=== PATIENT | male | born 1955 | race Caucasian/White ===

== ENCOUNTER 2018-08-12 10:10 | Day surgery (SDC) | payer OTHER ==
[~2018-08-12 10:10] MED LIST: EPINEPHrine 1 MG/ML 30 ML MDV ONE; Lactated Ringers 1,000 ML IV SCH; Lidocaine 1%/Sod Bicarbonate in NS 8.4% 1 ML Syringe IDERM PRN; Sodium Chloride 0.9% 10 ML Syringe FLUSH PRN
[2018-08-12] MEDS ORDERED: EPINEPHrine 1 MG/ML SDV ONE (11:29)
[2018-08-12] MEDS ORDERED: Ropivacaine 0.5% 5 MG/ML 30 ML SDV ONE (11:29)
[2018-08-12] MEDS ORDERED: Lidocaine 1% 4 ML ONE (11:29)
[2018-08-12] MEDS ORDERED: Dexamethasone 4 MG/ML SDV ONE (12:27)
[2018-08-12] MEDS ORDERED: Lactated Ringers 1,000 ML ONE (12:27)
[2018-08-12] MEDS ORDERED: ceFAZolin 1 GM Vial ONE (12:27)
[2018-08-12] MEDS ORDERED: Ondansetron 4 MG/2 ML SDV ONE (12:27)
[2018-08-12] MEDS ORDERED: Rocuronium 50 MG/5 ML Vial ONE (12:27)
[2018-08-12] MEDS ORDERED: Lidocaine 1% 6 ML ONE (12:27)
[2018-08-12] MEDS ORDERED: Ketorolac 30 MG/ML SDV ONE (12:27)
[2018-08-12] MEDS ORDERED: Propofol 200 MG/20 ML SDV ONE (12:28)
[2018-08-12] MEDS ORDERED: Midazolam 1 MG/ML 2 ML SDV ONE (12:28)
[2018-08-12] MEDS ORDERED: fentaNYL 250 MCG/5 ML SDV ONE (12:29)
[2018-08-12] MEDS ORDERED: Metoprolol Tartrate 25 MG Tab PO SCH (12:35)
--- NOTE | 2018-08-12 12:47 | PCM.PREANE ---
Preanesthetic Assessment - Anesthesia/Transfusion/Family Hx Anesthesia History: Prior Anesthesia Without Reaction Family History of Anesthesia Reaction: No Transfusion History: No Prior Transfusion(s) - Review of Systems General: No Symptoms Pulmonary: No Symptoms Cardiovascular: Dyspnea on Exertion Gastrointestinal: Abdominal Pain (hunger) Neurological: Tingling (right shoulder with movement) Other: Reports: Easy Bleeding, Liver Problems (enzimes a little high), Depression (Hx) - Physical Assessment NPO Status Date: 08/11/18 NPO Status Time: 18:00 Pulse: 63 O2 Sat by Pulse Oximetry: 95 Respiratory Rate: 16 Blood Pressure: 118/85 Temperature: 36.8 C Vital Signs: Last Vital Signs Temp 36.8 C 08/12/18 11:20 Pulse 63 08/12/18 12:40 Resp 16 08/12/18 11:20 BP 118/85 08/12/18 12:40 Pulse Ox 95 08/12/18 11:20 Height: 1.85 m Weight: 78.018 kg ASA Class: 3 Mental Status: Alert & Oriented x3 Dentition: Reports: Normal Dentition, [place](s) Thyro-Mental Finger Breadths: 3 Mouth Opening Finger Breadths: 3 ROM/Head Extension: Limited/Partial (stiffness wth "some pain") Lungs: Clear to Auscultation, Normal Respiratory Effort Cardiovascular: Regular Rate, Regular Rhythm - Lab Values: Laboratory Last Values MRSA (PCR) Negative 07/27/18 14:05 - Imaging/EKG Impressions: on chart SB with min. ST elevation - Allergies Allergies/Adverse Reactions: Allergies Allergy/AdvReac Type Severity Reaction Status Date / Time No Known Allergies Allergy Verified 08/11/18 15:33 - Blood Blood Available: No - Anesthesia Plan Pre-Op Medication Ordered: Beta Medina Beta Medina: Metoprolol Med Last Dose Date: 08/12/18 Med Last Dose Time: 12:40 - Acknowledgements Anesthesia Type Planned: General Anesthesia, Regional Block (right interscalene block for post-op pain control) Pt an Appropriate Candidate for the Planned Anesthesia: Yes Alternatives and Risks of Anesthesia Discussed w Pt/Guardian: Yes Pt/Guardian Understands and Agrees with Anesthesia Plan: Yes PreAnesthesia Questionnaire HEENT History: Reports: Epistaxis, Sinusitis Cardiovascular History: Reports: CAD, High Cholesterol, Hypertension, [place], Stents Respiratory History: Reports: Other (See Below) Other Respiratory History: bronchitis, cough Gastrointestinal History: Reports: GERD Genitourinary History: Reports: None ISOTOPE TECHNOLOGIST History: Reports: None Musculoskeletal History: Reports: Other (See Below) Other Musculoskeletal History: soreness to elbow and shoulders with bowling Neurological History: Reports: None Psychiatric History: Reports: Anxiety, Depression Other Psychiatric History: states that he's taken meds off and on for anxiety but has taken any meds for about a year and feels ok. Endocrine/Metabolic History: Reports: None Hematologic History: Reports: None Immunologic History: Reports: None Oncologic (Cancer) History: Reports: None Dermatologic History: Reports: None - Past Surgical History Head Surgeries/Procedures: Reports: None Cardiovascular Surgical History: Reports: Coronary Artery Stent Respiratory Surgical History: Reports: None GI Surgical History: Reports: Colonoscopy Female Surgical History: Reports: None Male Surgical History: Reports: None Endocrine Surgical History: Reports: None Neurological Surgical History: Reports: None Musculoskeletal Surgical History: Reports: None Oncologic Surgical History: Reports: None Dermatological Surgical History: Reports: None - SUBSTANCE USE Smoking Status *Q: Former Smoker Tobacco Use Within Last Twelve Months: No Second Hand Smoke Exposure: No Days Per Week of Alcohol Use: 1 Number of Drinks Per Day: 1 Total Drinks Per Week: 1 Recreational Drug Use History: No - HOME MEDS Home Medications: Home Meds Aspirin [Ecotrin] 81 mg PO DAILY 09/29/15 [History] Clopidogrel [Plavix] 75 mg PO DAILY 09/29/15 [History] Metoprolol Succinate [Toprol XL 50mg] 25 mg PO DAILY 09/29/15 [History] Multivitamin [Daily Multiple Vitamin] 1 tab PO DAILY 09/29/15 [History] Olmesartan [Benicar] 20 mg PO DAILY 09/29/15 [History] atorvaSTATin [Lipitor] 10 mg PO DAILY 09/29/15 [History] Acetaminophen/HYDROcodone [[place] 325-5 MG] 1 - 2 tab PO Q6H PRN #40 tablet 08/12 [Rx] Cyclobenzaprine [Flexeril] 10 mg PO Q8H PRN #40 tab 08/12/18 [Rx] - CURRENT (IN HOUSE) MEDS Current Meds: Current Medications Lactated Ringer's (Ringers, Lactated) 1,000 mls @ 125 mls/hr IV ASDIRECTED GERALD Last Admin: 08/12/18 11:40 Dose: 125 mls/hr Lidocaine/Sodium Bicarbonate (Buffered Lidocaine 1% In Ns 8.4%) 0.25 ml IDERM ONETIME PRN PRN Reason: Prior to IV Start Last Admin: 08/12/18 11:40 Dose: 0.25 ml Metoprolol Tartrate (Lopressor) 25 mg PO ONETIME GERALD Stop: 08/12/18 16:00 Last Admin: 08/12/18 12:40 Dose: 25 mg Sodium Chloride (Saline Flush) 10 ml FLUSH ASDIRECTED PRN PRN Reason: Keep Vein Open Discontinued Medications Cefazolin Sodium (Ancef) Confirm Administered Dose 2 gm .ROUTE .STK-MED ONE Stop: 08/12/18 12:28 Dexamethasone (Dexamethasone) Confirm Administered Dose 4 mg .ROUTE .STK-MED ONE Stop: 08/12/18 12:28 Epinephrine HCl (Adrenalin) 3 mg .XX ONETIME ONE Stop: 08/12/18 08:01 Epinephrine HCl (Adrenalin) 3 mg .XX ONETIME ONE Stop: 08/12/18 06:09 Epinephrine HCl (Adrenalin) Confirm Administered Dose 1 mg .ROUTE .STK-MED ONE Stop: 08/12/18 11:30 Fentanyl (Sublimaze) Confirm Administered Dose 250 mcg .ROUTE .STK-MED ONE Stop: 08/12/18 12:30 Lactated Ringer's (Ringers, Lactated) 1,000 mls @ 125 mls/hr IV ASDIRECTED GERALD Lidocaine HCl (Xylocaine-Mpf 1%) Confirm Administered Dose 4 mls @ as directed .ROUTE .STK-MED ONE Stop: 08/12/18 11:30 Lidocaine HCl (Xylocaine-Mpf 1%) Confirm Administered Dose 6 mls @ as directed .ROUTE .STK-MED ONE Stop: 08/12/18 12:28 Lactated Ringer's (Ringers, Lactated) Confirm Administered Dose 1,000 mls @ as directed .ROUTE .STK-MED ONE Stop: 08/12/18 12:28 Ketorolac Tromethamine (Toradol) Confirm Administered Dose 30 mg .ROUTE .STK- MED ONE Stop: 08/12/18 12:28 Lidocaine/Sodium Bicarbonate (Buffered Lidocaine 1% In Ns 8.4%) 0.25 ml IDERM ONETIME PRN PRN Reason: Prior to IV Start Midazolam HCl (Versed 1 Mg/Ml) Confirm Administered Dose 2 mg .ROUTE .STK-MED ONE Stop: 08/12/18 12:29 Ondansetron HCl (Zofran) Confirm Administered Dose 4 mg .ROUTE .STK-MED ONE Stop: 08/12/18 12:28 Propofol (Diprivan 20 Ml) Confirm Administered Dose 200 mg .ROUTE .STK-MED ONE Stop: 08/12/18 12:29 Rocuronium [place] (Zemuron) Confirm Administered Dose 50 mg .ROUTE .STK-MED ONE Stop: 08/12/18 12:28 Ropivacaine (Naropin 0.5%) Confirm Administered Dose 30 ml .ROUTE .STK-MED ONE Stop: 08/12/18 11:30 Sodium Chloride (Saline Flush) 10 ml FLUSH ASDIRECTED PRN PRN Reason: Keep Vein Open
[2018-08-12] MEDS ORDERED: Bupivacaine 0.25% 30 ML SDV ONE (12:58)
--- NOTE | 2018-08-12 13:35 | PCM.SN ---
- Free Text/Narrative Note: Anesthesia Note: (Right Interscalene Block Note) Date: 08/12/2018 Time Out: 1308 Start: 1305 Stop: 1325 Surgical Procedure: Right Shoulder Arthroscopy, decompression, rotator cuff repair Diagnosis Right shoulder pain Current Procedure: Right interscalene block under US guidance for postoperative pain control requested by Dr. Flynn. Patient chart reviewed, risk/benefits discussed with patient, consent obtained. Patient positioned supine, monitors/alarms on, oxygen placed via nasal cannula at 2 LPM. IV sedation administered: Versed 2mg IV @ 1309, Fentanyl 100mcg IV @ 1309 right shoulder prepped with two chloropreps. Sterile drapes placed with aseptic technique noted. Under US guidance, right subclavian artery visualized along with the right brachial plexus. Plexus followed up to C6 cricoid level, and area localized with 2mls of 1% lidocaine. 22gauge 2 inch stimiplex needle advanced under US with 0.8mV with stimulation of biceps noted. Good stimulation noted with decreased voltage and absent at 0.4mVs. 1ml of Normal Saline injected with loss of stimulation noted to confirm needle not placed intraneurally. Incremental dosing of 5mls with negative aspiration noted prior to each injection of 0.5% ropivacaine with 1:200,000 epinephrine. Total volume=30mls. Please refer to nurses noted for vital signs. Kana Burks CRNA
[2018-08-12] MEDS ORDERED: ePHEDrine/Normal Saline 25 MG/5 ML Syringe ONE (14:17)
[2018-08-12] MEDS ORDERED: fentaNYL 100 MCG/2 ML SDV IVPUSH PRN (15:22)
--- NOTE | 2018-08-12 15:24 | PCM.POSTAN ---
POST ANESTHESIA ASSESSMENT - MENTAL STATUS Mental Status: Somnolent - VITAL SIGNS Pulse Rate: 73 SaO2: 96 Resp Rate: 8 Blood Pressure: 114/78 Temperature: 36.4 C - RESPIRATORY Respiratory Status: Respiratory Rate WNL, Airway Patent, O2 Saturation Stable, Supplemental Oxygen - CARDIOVASCULAR CV Status: Pulse Rate WNL, Blood Pressure Stable - GASTROINTESTINAL GI Status: No Symptoms - PAIN Pain Score: 0 - POST OP HYDRATION Hydration Status: Adequate & Stable - OBSERVATIONS Free Text/Narrative:: no anesthesia complications noted
[2018-08-12] MEDS ORDERED: Acetaminophen/HYDROcodone 325-5 MG Tab PO PRN (16:01)
[2018-08-12 17:36] VITALS: BP 114/82
--- NOTE | 2018-08-13 08:44 | PCM.OPNOTE ---
- General Post-Op/Procedure Note Date of Surgery/Procedure: 08/12/18 Operative Procedure(s): right shoulder video arthroscopy with rotator cuff repair, subacromial decompression and limited debridement Pre Op Diagnosis: right shoulder rotator cuff tear with impingement Post-Op Diagnosis: Same Anesthesia Technique: General ET Tube, Regional Block Primary Surgeon: Garrett Flynn Anesthesia Provider: Kana Burks House Cleaner Supervisor: Adela Aleman EBL in mLs: 5 Complications: None Condition: Good Free Text/Narrative:: Intake & Output 08/12/18 08/13/18 08/13/18 22:59 06:59 14:59 Intake Total 700 Balance 700
--- NOTE | 2018-08-13 11:04 | OR ---
DATE OF OPERATION: 08/12/2018 SURGEON: Garrett Flynn MD OPERATION PERFORMED: Right shoulder video arthroscopy with rotator cuff repair, subacromial decompression, and limited debridement. PREOPERATIVE DIAGNOSIS: Right shoulder rotator cuff tear with impingement. POSTOPERATIVE DIAGNOSIS: Right shoulder rotator cuff tear with impingement. ANESTHESIA: General endotracheal intubation with regional interscalene block. ANESTHESIA PROVIDER: Kana Burks CRNA. AEROSPACE PROJECT MANAGER: Adela Aleman PA-C. ESTIMATED BLOOD LOSS: Less than 5 mL. COMPLICATIONS: None. CONDITION: Stable. DESCRIPTION OF PROCEDURE: The patient was identified in the preoperative holding area after proper site was marked and identified by the surgeon. The patient was taken back to the operating theater, where after adequate anesthesia, the patient was placed in a lazy left lateral decubitus position. A wedge was placed posteriorly. The patient was secured to the table. At this time, the right upper extremity was sterilely prepped and draped in the usual sterile fashion. OR time-out was performed. The patient received 2 g IV Ancef. At this time, 12 pounds traction was applied to the right upper extremity. Standard posterior incision was made, and the scope trocar was introduced to the glenohumeral joint. At this time, the patient was noted to have no signs of chondromalacia. The subscapularis tendon was intact. The patient was noted to have previous proximal biceps tendon rupture, and there was significant synovitis, but otherwise no signs of pathology intra-articularly. At this time, attention was turned to the subacromial space. The patient was noted to have a large tear of the supraspinatus in a crescent-shaped fashion from the attachment on the greater tuberosity. At this time, there was noted to be significant synovitis and a limited debridement was done of the subacromial space. The patient did have significant fraying of the CA ligament. A good bony bleeding bed was then created with the use of a resector and the previous footprint. With the use of a spinal needle, lateral portal was created and then a 4.75 mm triple-loaded Arthrex SwiveLock anchor was then placed on the medial footprint for a double row repair. The 2 limbs of FiberTape as well as 4 limbs of FiberWire were then passed. The 4 limbs of FiberWire were then tied for a medial row repair. One limb of each of these was then cut. The remaining 4 limbs were then brought out laterally. Another 4.75 mm Arthrex SwiveLock anchor was placed laterally for the double-row repair. Tension was placed to recreate the footprint, and it was found to have adequate anatomic uatsdin of the footprint. At this time, acromioplasty as well as debridement of the CA ligament was done back to a smooth border all the way to the anterior portion of the acromion. At this time, there was found to be adequate repair. All portals were removed. The skin was closed with 3-0 nylon. Sterile soft dressing and a pillow sling was applied, and the patient was sent to PACU in stable condition. TERRI /[id number]
== END 2018-08-12 17:25 | disposition home or self-care (01) ==
LOC: JD.SDS 10:10
PROVIDERS: ATTEND Orthopaedic Surgery
DX: M75.101 Unspecified rotator cuff tear or rupture of right shoulder, not specified as traumatic (principal); M75.41 Impingement syndrome of right shoulder; E78.5 Hyperlipidemia, unspecified; F41.8 Other specified anxiety disorders; J42 Unspecified chronic bronchitis; I25.10 Atherosclerotic heart disease of native coronary artery without angina pectoris; Z87.891 Personal history of nicotine dependence; Z79.82 Long term (current) use of aspirin; Z79.899 Other long term (current) drug therapy
CPT/HCPCS: 01630; 64415; 87641; A9270-GY; C1713; J0171; J0690; J1100; J1885; J2001; J2250; J2405; J2704; J2795; J3010; J3490; J7050; J7120

== ENCOUNTER 2018-12-23 19:29 | Emergency (ER) | payer OTHER ==
[2018-12-23 19:43] VITALS: BP 143/94
--- NOTE | 2018-12-23 20:58 | EDM.PDOC ---
ED HPI GENERAL MEDICAL PROBLEM - General Chief Complaint: ENT Problem Stated Complaint: NOSE BLEED Time Seen by Provider: 12/23/18 19:55 Source of Information: Reports: Patient, RN Notes Reviewed - History of Present Illness INITIAL COMMENTS - FREE TEXT/NARRATIVE: 63-year-old male comes in with right nosebleed. This is been bleeding off and on for the past 2 days. It became more steady this evening and unable to get stopped at home. He is on aspirin and Plavix, he does have cardiac stents. - Related Data Allergies Allergy/AdvReac Type Severity Reaction Status Date / Time No Known Allergies Allergy Verified 12/23/18 19:37 Home Meds: Home Meds Aspirin [Ecotrin] 81 mg PO DAILY 09/29/15 [History] Clopidogrel [Plavix] 75 mg PO DAILY 09/29/15 [History] Metoprolol Succinate [Toprol XL 50mg] 25 mg PO DAILY 09/29/15 [History] Multivitamin [Daily Multiple Vitamin] 1 tab PO DAILY 09/29/15 [History] Olmesartan [Benicar] 20 mg PO DAILY 09/29/15 [History] Past Medical History HEENT History: Reports: Epistaxis, Sinusitis Cardiovascular History: Reports: CAD, High Cholesterol, Hypertension, [place], Stents Respiratory History: Reports: Other (See Below) Other Respiratory History: bronchitis, cough Gastrointestinal History: Reports: GERD, Other (See Below) Other Gastrointestinal History: fatty liver Genitourinary History: Reports: None DIE CLEANER History: Reports: None Musculoskeletal History: Reports: Other (See Below) Other Musculoskeletal History: soreness to elbow and shoulders with bowling Neurological History: Reports: None Psychiatric History: Reports: Anxiety, Depression Other Psychiatric History: states that he's taken meds off and on for anxiety but has taken any meds for about a year and feels ok. Endocrine/Metabolic History: Reports: None Hematologic History: Reports: None Immunologic History: Reports: None Oncologic (Cancer) History: Reports: None Dermatologic History: Reports: None - Past Surgical History Head Surgeries/Procedures: Reports: None Cardiovascular Surgical History: Reports: Coronary Artery Stent Respiratory Surgical History: Reports: None GI Surgical History: Reports: Colonoscopy Male Surgical History: Reports: None Endocrine Surgical History: Reports: None Neurological Surgical History: Reports: None Musculoskeletal Surgical History: Reports: None, Other (See Below) Other Musculoskeletal Surgeries/Procedures:: shoulder surgery Oncologic Surgical History: Reports: None Dermatological Surgical History: Reports: None Social & Family History - Family History Family Medical History: Noncontributory - Tobacco Use Smoking Status *Q: Former Smoker Used Tobacco, but Quit: Yes Month/Year Tobacco Last Used: 10 years ago - Caffeine Use Caffeine Use: Reports: Coffee - Recreational Drug Use Recreational Drug Use: No - Living Situation & Occupation Living situation: Reports: , with Spouse Occupation: Employed ED ROS ENT - Review of Systems Review Of Systems: See Below Constitutional: Reports: No Symptoms HEENT: Reports: Nosebleed Respiratory: Denies: Shortness of Breath Cardiovascular: Denies: Chest Pain GI/Abdominal: Denies: Abdominal Pain, Nausea, Vomiting Musculoskeletal: Reports: No Symptoms Skin: Reports: No Symptoms Neurological: Reports: No Symptoms ED EXAM, ENT - Physical Exam Exam: See Below General Appearance: Alert, No Apparent Distress Nose: Active Bleeding (Mild active bleeding right nares, appears to be coming from anterior septum) Mouth/Throat: Normal Inspection Head: Atraumatic. No: Facial Swelling Neck: Supple, Full Range of Motion Respiratory/Chest: Lungs Clear Cardiovascular: Regular Rate, Rhythm Extremities: Normal Inspection Skin: Warm, Dry, Normal Color ED ENT PROCEDURES - Epistaxis Procedure Indication: Epistaxis Recent anticoagulants/antiplatlets: Yes Uncontrolled HTN: No Site of bleeding: Right Nare Topical Meds: Topical Cocaine Chemical cautery: Silver Nitrate Topical (Area of bleeding right septum cauterized, no further bleeding) Course - Vital Signs Last Recorded V/S: Last Vital Signs Temp 97.9 F 12/23/18 19:41 Pulse 78 12/23/18 19:41 Resp 16 12/23/18 19:41 BP 143/94 H 12/23/18 19:41 Pulse Ox 100 12/23/18 19:41 - Orders/Labs/Meds Meds: Medications Discontinued Medications Generic Name Dose Route Start Last Admin Trade Name Freq PRN Reason Stop Dose Admin Cocaine HCl 4 ml 12/23/18 20:02 12/23/18 20:10 Cocaine Hcl TOP 12/23/18 20:03 4 ml ONETIME ONE Administration Departure - Departure Time of Disposition: 20:56 Disposition: Home, Self-Care 01 Condition: Fair Clinical Impression: Epistaxis - Discharge Information Instructions: Nosebleed, [id number] Referrals: PCP,None [Primary Care Provider] - Forms: ED Department Discharge Additional Instructions: Stop Plavix and aspirin for about 3 days as discussed, try not to blow nose for 2-3 days, vaseline to distal nose 2-3 times daily for moisturization, pressure if needed for any further bleeding. Return to ED as needed.
== END 2018-12-23 21:05 | disposition home or self-care (01) ==
LOC: JD.ED 19:29
DX: R04.0 Epistaxis (principal); I10 Essential (primary) hypertension; E78.00 Pure hypercholesterolemia, unspecified; I25.2 Old myocardial infarction; K21.9 Gastro-esophageal reflux disease without esophagitis; F41.9 Anxiety disorder, unspecified; F32.9 Major depressive disorder, single episode, unspecified; Z79.82 Long term (current) use of aspirin; Z79.899 Other long term (current) drug therapy; Z87.891 Personal history of nicotine dependence
CPT/HCPCS: 30901; 99282; 99283

== ENCOUNTER 2020-03-22 09:43 | Day surgery (SDC) | payer OTHER ==
--- NOTE | 2020-03-22 07:22 | PCM.PREANE ---
Preanesthetic Assessment - Anesthesia/Transfusion/Family Hx Anesthesia History: Prior Anesthesia Without Reaction Family History of Anesthesia Reaction: No Transfusion History: No Prior Transfusion(s) Intubation History: Unknown - Review of Systems General: No Symptoms Pulmonary: No Symptoms (Bronchitis chronic with acute exacerbation (COPD)/quit smokin08/07/2008 1-2 ppd times 30 years/ETOH:rarely ) Cardiovascular: No Symptoms (CAD with PTCA/stenting to RCA following ST elevation DC 2007/DC/Stents times 2/HTN), Lightheadedness (positional changes) Gastrointestinal: No Symptoms (2015 one tubular adenoma removed via colonoscopy: GERD) Neurological: No Symptoms Other: Reports: Easy Bleeding, Liver Problems (History of elevated liver enzymes/history of fatty liver from US via patient history), Depression, Anxiety - Physical Assessment NPO Status Date: 03/22/20 NPO Status Time: 04:00 Vital Signs: HR:60 B/P:117/73 Resp:16 Temp:98 Sat:96% Height: 1.85 m Weight: 76 kg ASA Class: 3 Mental Status: Alert & Oriented x3 Airway Class: Mallampati = 2 Dentition: Reports: Normal Dentition, [place](s), [place] Thyro-Mental Finger Breadths: 3 Mouth Opening Finger Breadths: 3 ROM/Head Extension: Full Lungs: Clear to Auscultation, Normal Respiratory Effort Cardiovascular: Regular Rate, Regular Rhythm, No Murmurs - Lab Values: All labs reviewed and noted and within acceptable ranges to proceed with scheduled procedure. - Imaging/EKG Impressions: Echocardiogram: EF: 60-65%, EKG: SR rate=79, abnormal t waves consider ischemia in diffuse leads - Allergies Allergies/Adverse Reactions: Allergies Allergy/AdvReac Type Severity Reaction Status Date / Time No Known Allergies Allergy Verified 03/21/20 14:37 - Anesthesia Plan Pre-Op Medication Ordered: Beta Medina Beta Medina: Metoprolol Med Last Dose Date: 03/21/20 Med Last Dose Time: 06:30 - Acknowledgements Anesthesia Type Planned: MAC Pt an Appropriate Candidate for the Planned Anesthesia: Yes Alternatives and Risks of Anesthesia Discussed w Pt/Guardian: Yes Pt/Guardian Understands and Agrees with Anesthesia Plan: Yes PreAnesthesia Questionnaire HEENT History: Reports: Epistaxis, Sinusitis, Other (See Below) Other HEENT History: glasses, pharyngitis Cardiovascular History: Reports: CAD, High Cholesterol, Hypertension, [place], Stents Respiratory History: Reports: Other (See Below) Other Respiratory History: bronchitis, cough Gastrointestinal History: Reports: GERD, Other (See Below) Other Gastrointestinal History: fatty liver, LFTs Genitourinary History: Reports: None COLOR ARTIST History: Reports: None Musculoskeletal History: Reports: Other (See Below) Other Musculoskeletal History: soreness to elbow and shoulders with bowling, right shoulder pain Neurological History: Reports: None Psychiatric History: Reports: Anxiety, Depression Other Psychiatric History: states that he's taken meds off and on for anxiety but has taken any meds for about a year and feels ok. Endocrine/Metabolic History: Reports: None Hematologic History: Reports: None Immunologic History: Reports: None Oncologic (Cancer) History: Reports: None Dermatologic History: Reports: None - Infectious Disease History Infectious Disease History: Reports: None - Past Surgical History Head Surgeries/Procedures: Reports: None Cardiovascular Surgical History: Reports: Coronary Artery Stent Respiratory Surgical History: Reports: None GI Surgical History: Reports: Colonoscopy Female Surgical History: Reports: None Male Surgical History: Reports: None Endocrine Surgical History: Reports: None Neurological Surgical History: Reports: None Musculoskeletal Surgical History: Reports: Shoulder Surgery, Other (See Below) Other Musculoskeletal Surgeries/Procedures:: shoulder surgery Oncologic Surgical History: Reports: None Dermatological Surgical History: Reports: None - SUBSTANCE USE Smoking Status *Q: Never Smoker Recreational Drug Use History: No - HOME MEDS Home Medications: Home Meds Aspirin [Ecotrin EC] 81 mg PO DAILY 09/29/15 [History] Multivitamin [Daily Multiple Vitamin] 1 tab PO DAILY 09/29/15 [History] Olmesartan [Benicar] 20 mg PO DAILY 09/29/15 [History] Metoprolol Succinate 50 mg PO DAILY 03/21/20 [History] Nitroglycerin [Nitrostat] 0.4 mg SL ASDIRECTED PRN 03/21/20 [History] atorvaSTATin Calcium [Atorvastatin Calcium] 10 mg PO DAILY 03/21/20 [History] - CURRENT (IN HOUSE) MEDS Current Meds: Current Medications Lactated Ringer's (Ringers, Lactated) 1,000 mls @ 125 mls/hr IV ASDIRECTED GERALD Stop: 03/22/20 18:00 Lidocaine/Sodium Bicarbonate (Buffered Lidocaine 1% In Ns 8.4%) 0.25 ml IDERM ONETIME PRN PRN Reason: Prior to IV Start Stop: 03/22/20 18:00 Sodium Chloride (Saline Flush) 10 ml FLUSH ASDIRECTED PRN PRN Reason: Keep Vein Open Stop: 03/22/20 18:00
[~2020-03-22 09:43] MED LIST changes: -EPINEPHrine 1 MG/ML 30 ML MDV ONE
[2020-03-22] MEDS ORDERED: fentaNYL 100 MCG/2 ML SDV ONE (10:31)
[2020-03-22] MEDS ORDERED: Midazolam 1 MG/ML 2 ML SDV ONE (10:31)
[2020-03-22] MEDS ORDERED: Propofol 200 MG/20 ML SDV ONE ×2 (10:31→12:15)
[2020-03-22] MEDS ORDERED: Lidocaine 1% 4 ML ONE (10:34)
--- NOTE | 2020-03-22 13:32 | PCM48HPAN ---
Post Anesthesia Note - EVALUATION WITHIN 48HRS OF ANESTHETIC Vital Signs in Normal Range: Yes Patient Participated in Evaluation: Yes Respiratory Function Stable: Yes Airway Patent: Yes Cardiovascular Function Stable: Yes Hydration Status Stable: Yes Pain Control Satisfactory: Yes Nausea and Vomiting Control Satisfactory: Yes Mental Status Recovered: Yes Vital Signs: Last Vital Signs Temp 98.0 F 03/22/20 09:50 Pulse 57 L 03/22/20 12:50 Resp 16 03/22/20 12:50 BP 101/60 03/22/20 12:50 Pulse Ox 98 03/22/20 12:50
[2020-03-22 13:41] VITALS: BP 101/64; PULSE 53
--- NOTE | 2020-03-23 09:56 | PCM.PRNOTE ---
- Free Text/Narrative Note: Date: 03/22/2020 Procedure: screening colonoscopy Endoscopist: Sid Zhang MD Findings: good prep. Cecum reached. Five polyps identified and removed. Sigmoid diverticulosis. Hemorrhoidal skin tags. Detailed Report: The patient was taken to the endoscopy suite and placed in left lateral decubitus position. Time out was performed. There were external hemorrhoidal skin tags. Digital exam was unremarkable. The colonoscope was lubricated and inserted into the anus. The scope was advanced to the cecum with ease. The appendiceal orifice and ileocecal valve were seen. The prep was excellent. The scope was slowly withdrawn and mucosal surfaces carefully inspected. Five small polyps were identified and biopsied with forceps. The bases were fulgurated. Diverticulosis of the sigmoid colon was noted. There were mild internal hemorrhoids on retroflexion within the rectum. Air was evacuated and the scope withdrawn. The patient tolerated the procedure well.
== END 2020-03-22 13:30 | disposition home or self-care (01) ==
LOC: JD.SDS 09:43
PROVIDERS: ATTEND Surgery
DX: Z12.11 Encounter for screening for malignant neoplasm of colon (principal); D12.3 Benign neoplasm of transverse colon; D12.4 Benign neoplasm of descending colon; K57.30 Diverticulosis of large intestine without perforation or abscess without bleeding; K64.8 Other hemorrhoids; K64.4 Residual hemorrhoidal skin tags; F32.9 Major depressive disorder, single episode, unspecified; I25.10 Atherosclerotic heart disease of native coronary artery without angina pectoris; I25.2 Old myocardial infarction; F41.9 Anxiety disorder, unspecified; E78.5 Hyperlipidemia, unspecified; I10 Essential (primary) hypertension; E78.00 Pure hypercholesterolemia, unspecified; K21.9 Gastro-esophageal reflux disease without esophagitis; Z79.82 Long term (current) use of aspirin; Z79.899 Other long term (current) drug therapy; Z87.891 Personal history of nicotine dependence
CPT/HCPCS: 45380; J2001; J2250; J2704; J3010; J7120; 00812

== ENCOUNTER 2023-03-04 14:52 | Emergency (ER) | payer BC ==
[2023-03-04 16:01] LABS: BASOPHILS ABSOLUTE AUTO 0.03 K/mm3 (0.01-0.08); BASOPHILS PERCENT AUTO 0.3 % (0.1-1.2); EOSINOPHILS ABSOLUTE AUTO 0.38 K/mm3 (0.04-0.54); EOSINOPHILS PERCENT AUTO 3.2 (0.8-7.0); HEMATOCRIT 35.6 % (40.1-51.0); HEMOGLOBIN 11.5 gm/dl (13.7-17.5); IMMATURE GRAN ABSOLUTE AUTO 0.27 K/mm3 (0.00-0.10); IMMATURE GRAN PERCENT AUTO 2.3 % (<=1.0); LYMPHOCYTES ABSOLUTE AUTO 1.68 K/mm3 (1.32-3.57); MEAN CORPUSCULAR HGB CONC 32.3 g/dl (32.2-35.5); MEAN CORPUSCULAR VOLUME 89.7 fl (79.0-92.2); MEAN PLATELET VOLUME 9.9 fl (9.4-12.3); MONOCYTES PERCENT AUTO 12.5 % (5.3-12.2); NEUTROPHILS ABSOLUTE AUTO 8.14 K/mm3 (1.78-5.38); NEUTROPHILS PERCENT AUTO 67.7 % (34.0-67.9); PLATELET COUNT,PLT 389 K/mm3 (163-337); RED BLOOD CELL COUNT 3.97 M/mm3 (4.63-6.08)
[2023-03-04 16:34] LABS: A/G RATIO 0.8 (1-2); ALBUMIN 2.9 g/dl (3.4-5.0); ANION GAP 10.3 (5-15); BILIRUBIN TOTAL 0.8 mg/dL (0.2-1.0); C-REACTIVE PROTEIN 7.2 mg/dL (<1.0); CALCIUM 8.8 mg/dL (8.5-10.1); CREATININE 0.9 mg/dL (0.7-1.3); EST CRCL DRUG DOSING (CG) 89.81 mL/min; POTASSIUM,K 4.3 mEq/L (3.5-5.1); PROTEIN TOTAL,TP 6.6 g/dl (6.4-8.2)
[2023-03-04 18:20] VITALS: BP 128/88; PULSE 76
== END 2023-03-04 18:15 | disposition home or self-care (01) ==
LOC: JD.ED 14:52
DX: I80.02 Phlebitis and thrombophlebitis of superficial vessels of left lower extremity (principal); I25.10 Atherosclerotic heart disease of native coronary artery without angina pectoris; I10 Essential (primary) hypertension; I25.2 Old myocardial infarction; E78.00 Pure hypercholesterolemia, unspecified; Z79.82 Long term (current) use of aspirin; Z79.899 Other long term (current) drug therapy
CPT/HCPCS: 36415; 80053; 85025; 86140; 93971-26-LT; 93971-LT; 99284

== ENCOUNTER 2023-03-08 19:30 | Emergency (ER) | payer BC ==
[2023-03-09] VITALS: BP 115/80; PULSE 98
== END 2023-03-08 23:45 | disposition home or self-care (01) ==
LOC: JD.ED 19:30
DX: K59.00 Constipation, unspecified (principal); I25.10 Atherosclerotic heart disease of native coronary artery without angina pectoris; E78.00 Pure hypercholesterolemia, unspecified; I10 Essential (primary) hypertension; I25.2 Old myocardial infarction; Z86.16 Personal history of COVID-19; Z87.891 Personal history of nicotine dependence; Z79.02 Long term (current) use of antithrombotics/antiplatelets; Z79.899 Other long term (current) drug therapy
CPT/HCPCS: 74018; 74018-26; 99283

== ENCOUNTER 2024-02-25 08:05 | Day surgery (SDC) | payer BC, MEDICARE ==
[~2024-02-25 08:05] MED LIST changes: +Dexamethasone 4 MG/ML 5 ML MDV ONE; +Ketorolac 30 MG/ML SDV ONE; -Lidocaine 1%/Sod Bicarbonate in NS 8.4% 1 ML Syringe IDERM PRN; +Lidocaine 2% 5 ML SDV ONE; +Metoclopramide 10 MG/2 ML SDV ONE; +Midazolam 1 MG/ML 2 ML SDV ONE; +Propofol 200 MG/20 ML SDV ONE; +Rocuronium 50 MG/5 ML Vial ONE; +Sodium Chloride 0.9% 10 ML Syringe FLUSH SCH; +ceFAZolin 2 GM Vial ONE; +dexmedeTOMIDine HCl 200 MCG/2 ML SDV ONE; +fentaNYL 100 MCG/2 ML SDV ONE
[2024-02-25] MEDS: Lactated Ringers 1,000 ML IV SCH (08:30)
[2024-02-25] MEDS: Famotidine 20 MG/2 ML SDV IVPUSH ONE (08:47)
[2024-02-25] MEDS: Acetaminophen 325 MG Tab PO SCH (08:47)
[2024-02-25] MEDS ORDERED: Neostigmine Methylsulfate 10 MG/10 ML MDV ONE (09:04)
[2024-02-25] MEDS ORDERED: ePHEDrine 50 MG/ML SDV ONE (09:04)
[2024-02-25] MEDS: Bupivacaine 0.5% 30 ML SDV ONE (09:49)
[2024-02-25] MEDS: EPINEPHrine 1 MG/ML SDV ONE (09:49)
[2024-02-25] MEDS ORDERED: HYDROmorphone 0.5 MG/0.5 ML Syringe IVPUSH PRN (09:51)
[2024-02-25] MEDS ORDERED: fentaNYL 100 MCG/2 ML SDV IVPUSH PRN (09:51)
[2024-02-25] MEDS ORDERED: Ondansetron 4 MG/2 ML SDV IVPUSH PRN (09:51)
[2024-02-25] MEDS ORDERED: Ondansetron 4 MG/2 ML SDV ONE (11:00)
[2024-02-25] MEDS ORDERED: oxyCODONE 5 MG Tab PO ONE (11:44)
[2024-02-25 15:38] VITALS: BP 110/71; PULSE 62
[2024-02-25] MEDS ORDERED: Famotidine 20 MG/2 ML SDV IVPUSH SCH (21:00)
== END 2024-02-25 14:20 | disposition home or self-care (01) ==
LOC: JD.SDS 08:05
PROVIDERS: ATTEND Surgery
DX: K40.20 Bilateral inguinal hernia, without obstruction or gangrene, not specified as recurrent (principal); D17.6 Benign lipomatous neoplasm of spermatic cord; I25.10 Atherosclerotic heart disease of native coronary artery without angina pectoris; I10 Essential (primary) hypertension; E78.5 Hyperlipidemia, unspecified; K21.9 Gastro-esophageal reflux disease without esophagitis; I25.2 Old myocardial infarction; Z95.5 Presence of coronary angioplasty implant and graft; Z95.1 Presence of aortocoronary bypass graft; Z87.891 Personal history of nicotine dependence; Z79.82 Long term (current) use of aspirin; Z79.02 Long term (current) use of antithrombotics/antiplatelets; Z79.899 Other long term (current) drug therapy
CPT/HCPCS: 49650; A9270; J0171; J0665; J0690; J1100; J1885; J2250; J2704; J2710; J2765; J3010; J3490; J7120; J2405